=== PATIENT | female | born 1985 | race Caucasian/White ===

== ENCOUNTER → 2016-07-09 | Outpatient (CLI) | payer OTHER ==
--- NOTE | 2016-07-09 12:19 | XR ---
EXAMINATION TYPE: XR ankle complete LT DATE OF EXAM: 07/09/2016 12:13 PM COMPARISON: NONE HISTORY: Lateral ankle pain FINDINGS: Three views of the ankle demonstrate the ankle mortise to be intact and symmetric. The joint spaces are preserved. The osseous structures are intact. IMPRESSION: 1. No definite acute fracture or dislocation, if symptoms persist follow-up study in 7 to 10 days wou ld be suggested.
--- NOTE | 2016-07-09 12:20 | XR ---
EXAMINATION TYPE: XR foot complete LT DATE OF EXAM: 07/09/2016 12:13 PM COMPARISON: NONE HISTORY: Pain TECHNIQUE: Three views are submitted. FINDINGS: The osseous structures are intact and the joint spaces are preserved. There is no acute fracture or dislocation. Soft tissue edema around the first and fifth MTP joints. Mild arthropathy first MTP join t. Hammertoe deformities noted. IMPRESSION: 1. No acute fracture or dislocation. If symptoms persist, follow-up exam in 7 to 10 days could be ob tained. Soft tissue edema adjacent to the fifth and first MTP likely chronic correlate clinically.
== END | disposition home or self-care (01) ==
LOC: RADXRMAIN 11:49 → MERGE 11:49
PROVIDERS: ATTEND Internal Medicine
DX: M25.572 Pain in left ankle and joints of left foot (principal)

== ENCOUNTER → 2018-05-13 | Outpatient (CLI) | payer OTHER ==
--- NOTE | 2018-05-13 16:59 | CT ---
EXAMINATION TYPE: CT abdomen pelvis w con DATE OF EXAM: 05/13/2018 COMPARISON: None INDICATION: Left sided abdominal pain. DLP: 481.3 mGycm, Automated exposure control for dose reduction was used. CONTRAST: 100 mL of Isovue M300. Study performed with Oral Contrast TECHNIQUE: Axial images were obtained from above the diaphragm to the pubic rami in the axial plane a t 5 mm thick sections. Reconstructed images are reviewed on the computer in the coronal plane. FINDINGS: Limited CT sections are obtained the lung bases. The lung bases are clear. CT ABDOMEN: Liver: There is a suspected 1.3 cm hemangioma within the posterior lateral right mid liver. This area appears to be normal density and postcontrast delayed images. Spleen: Normal Pancreas: Normal Adrenal glands: The adrenal glands are normal. Gallbladder: Normal Kidneys: No masses are evident. No hydronephrosis is present. No cysts are present. Delayed images were obtained through the kidneys, which remain unremarkable. Aorta: Normal Inferior vena cava: Normal. CT PELVIS: Loops of bowel within the abdomen and pelvis are normal. There are loops of bowel which are incom pletely distended or lack oral contrast limiting their evaluation. Appendix: Not visualized. No suspicious tubular structures or inflammatory changes are. Urinary bladder: Distended Genitourinary structures: Uterus appears normal. Adnexal regions appear normal limits. Small amount o f fluid is within the dependent pelvis. This could be physiologic. Osseous structures: No suspicious lytic or sclerotic lesions. IMPRESSIONS: 1. Probable hemangioma within the liver. This could be confirmed with ultrasound. 2. No suspicious etiology to account for left abdominal pain.
== END | disposition home or self-care (01) ==
LOC: RADCTMAIN 12:26
PROVIDERS: ATTEND Internal Medicine
DX: R10.84 Generalized abdominal pain (principal)
CPT/HCPCS: 74177; Q9967

== ENCOUNTER → 2019-09-12 | Outpatient (CLI) | payer OTHER ==
--- NOTE | 2019-09-12 11:36 | US ---
EXAMINATION TYPE: US abdomen complete DATE OF EXAM: 09/12/2019 COMPARISON: NONE CLINICAL HISTORY: R10.84 ABD PAIN. Pain EXAM MEASUREMENTS: Liver Length: 16.4 cm Gallbladder Wall: .3 cm CBD: .6 cm Spleen: 10.7 cm Right Kidney: 10.1 x 4.1 x 3.7 cm Left Kidney: 10.1 x 4.9 x 3.6 cm Pancreas: wnl Liver: wnl Gallbladder: wnl Evidence for sonographic Tran's sign: No CBD: wnl Spleen: wnl Right Kidney: wnl Left Kidney: wnl Upper IVC: wnl Abd Aorta: wnl The liver is homogenous. The intrahepatic portion of the IVC and proximal abdominal aorta are within normal limits. There is no evidence of cholelithiasis. Common bile duct is unremarkable. The visu alized portions of the pancreas are homogenous. The spleen is unremarkable. Kidneys are symmetric a nd free of hydronephrosis. No renal lesions are seen. IMPRESSION: No significant abnormality appreciated.
== END | disposition home or self-care (01) ==
LOC: RADUSWWP 09:56
PROVIDERS: ATTEND Internal Medicine
DX: R10.84 Generalized abdominal pain (principal)
CPT/HCPCS: 76700

== ENCOUNTER → 2019-10-23 | Outpatient (CLI) | payer OTHER ==
--- NOTE | 2019-10-24 09:38 | MR ---
EXAMINATION TYPE: MR liver wo/w con DATE OF EXAM: 10/23/2019 COMPARISON: NONE HISTORY: Liver lesion on 05/13/[address] Abdomen TECHNIQUE: Multiplanar, multisequence images of the abdomen, liver mass protocol were obtained before and after administration of 7 mL Gadavist IV contrast. FINDINGS: Lung bases: No pleural or pericardial effusion. Liver: Within segment 6 of the liver there is a 1.1 x 1.0 x 0.9 cm T1 hypointense, T2 hyperintense, w ell-circumscribed enhancing lesion with no evidence of washout. Peripheral wedge-shaped vascular tabatha rial shunting shunting is seen associated with this lesion on arterial phase. This lesion contains no macroscopic or microscopic fat. Biliary: Normal. Pancreas: Normal. Spleen: Normal. Adrenals: Normal. Kidneys: Normal. Bowel: No bowel obstruction. Lymph nodes: No lymphadenopathy. Peritoneum: No ascites. Osseous structures: No marrow-replacing lesions seen. A couple vertebral body hemangiomas are inciden tally noted. IMPRESSION: 1.1 cm lesion of the right liver most likely represents benign hemangioma. No additional follow-up is recommended.
== END | disposition home or self-care (01) ==
LOC: RADMRIMAIN 15:21
PROVIDERS: ATTEND Internal Medicine
DX: K76.9 Liver disease, unspecified (principal)
CPT/HCPCS: 74183; A9585

== ENCOUNTER 2019-11-17 11:31 | Day surgery (SDC) | payer OTHER ==
[2019-11-16 09:25] VITALS: BMI 25.0
[~2019-11-17 11:31] MED LIST: LACTATED RINGERS 1,000 ML IV SCH
[2019-11-17 12:05] VITALS: RESP 16; TEMP 96
[2019-11-17] MEDS ORDERED: LIDOCAINE 1% (10MG/ML) FOR IV START INTRADERMA ONE (12:08)
[2019-11-17] MEDS ORDERED: LIDOCAINE 1% INJ 10MG/ML (20 ML MDV) ONE (13:26)
[2019-11-17] MEDS ORDERED: PROPOFOL 10 MG/ML 20 ML VIAL IV ONE (13:26)
[2019-11-17] MEDS ORDERED: IV FLUID CONTINUATION 1,000 ML IV ONE (13:32)
--- NOTE | 2019-11-17 13:34 | P.PCN ---
Date of Procedure: 11/17/19 Procedure(s) Performed: BRIEF HISTORY: Patient is a 34-year-old, pleasant, white female scheduled for an upper endoscopy as a part of evaluation of epigastric and left upper quadrant abdominal pain for the last 2 months duration.. PROCEDURE PERFORMED: Esophagogastroduodenoscopy with biopsy. PREOPERATIVE DIAGNOSIS: Epigastric and left upper quadrant abdominal pain of 2 months duration. IV sedation per anesthesia. PROCEDURE: After informed consent was obtained, the patient was brought into the endoscopy unit. IV sedation was administered by Anesthesia under continuous monitoring. Initially the Olympus GIF-140 video endoscope was inserted into the mouth. Esophagus intubated without any difficulty. It was gradually advanced into the stomach and duodenum and carefully examined. The bulb and the second part of the duodenum appeared normal. The scope at this time was withdrawn to the stomach, adequately insufflated with air, and upon careful examination, mucosa of the antrum, body had multiple scattered erosions consistent with erosive gastritis and biopsies were done from this area. The, cardia and the fundus appeared normal. The scope was then withdrawn into the esophagus. The GE junction was located at 39 cm from the incisors. The esophagus appeared normal. There were no erosions or ulcerations seen, biopsies were done from the esophagus and the patient tolerated the procedure well. IMPRESSION: 1. Multiple scattered erosions in the distal body and proximal antrum of the stomach status post biopsies. 2. No evidence of esophagitis. RECOMMENDATIONS: The findings of this examination were discussed with the patient as well as a family. She was advised to follow with the biopsy results. Intermittent meantime she will be given a trial of Prilosec 20 mg daily for 6 weeks..
[2019-11-17 13:37] VITALS: PULSE 76
[2019-11-17 13:50] VITALS: BP 110/68
== END 2019-11-17 14:06 | disposition home or self-care (01) ==
LOC: ORWHC2ENDO 11:31
PROVIDERS: ATTEND Internal Medicine Gastroenterology
DX: K29.50 Unspecified chronic gastritis without bleeding (principal); K25.9 Gastric ulcer, unspecified as acute or chronic, without hemorrhage or perforation; I49.9 Cardiac arrhythmia, unspecified; I10 Essential (primary) hypertension; R00.0 Tachycardia, unspecified; Z79.890 Hormone replacement therapy; Z79.899 Other long term (current) drug therapy
CPT/HCPCS: 81025; 88305; 43239; J2001; J2704

== ENCOUNTER → 2020-09-16 | Outpatient (CLI) | payer OTHER ==
--- NOTE | 2020-09-17 07:51 | XR ---
EXAMINATION TYPE: XR foot complete LT DATE OF EXAM: 09/16/2020 CLINICAL HISTORY: 07/09/2016 TECHNIQUE: Frontal, lateral and oblique images of the left foot are obtained. COMPARISON: None. FINDINGS: There is no acute fracture/dislocation evident. Screw fixation noted of the midportion of the fifth metatarsal. Bunionectomy change lateral margin of the fifth metatarsal head. The joint spac es appear within normal limits. The overlying soft tissue appears unremarkable. IMPRESSION: There is no acute fracture or dislocation. ICD 10 NO FRACTURE, INITIAL EVALUATION
== END | disposition home or self-care (01) ==
LOC: RADXRMAIN 16:23
PROVIDERS: ATTEND Internal Medicine
DX: M79.672 Pain in left foot (principal)

== ENCOUNTER → 2021-01-23 | Outpatient (CLI) | payer OTHER ==
--- NOTE | 2021-01-27 09:50 | MM ---
Reason for exam: screening (asymptomatic). Baseline mammogram. History: Taking hormonal contraceptives for 4 years. Physical Findings: Nurse did not find any significant physical abnormalities on exam. MG Screening Mammo w CAD Bilateral CC and MLO view(s) were taken. The breast tissue is heterogeneously dense. This may lower the sensitivity of mammography. No significant findings. ASSESSMENT: Benign, BI-RAD 2 RECOMMENDATION: Routine screening mammogram of both breasts at age 38.
== END | disposition home or self-care (01) ==
LOC: RADMAMWWP 14:14
PROVIDERS: ATTEND Internal Medicine
DX: Z12.31 Encounter for screening mammogram for malignant neoplasm of breast (principal)
CPT/HCPCS: 77067

== ENCOUNTER 2021-02-05 17:04 | Emergency (ER) | payer OTHER ==
[2021-02-05 18:27] VITALS: TEMP 97.5
[2021-02-05 19:06] LABS: Basophils % (A) 1 %; Eosinophils # (A) 0.1 k/uL (0-0.7); Eosinophils % (A) 2 %; HGB 14.5 gm/dL (11.4-16.0); Lymphocytes # (A) 1.3 k/uL (1.0-4.8); Lymphocytes % (A) 25 %; MCH 31.8 pg (25.0-35.0); MCHC 34.5 g/dL (31.0-37.0); MCV 92.2 fL (80.0-100.0); Mean Platelet Volume 9.4; Monocytes # (A) 0.3 k/uL (0-1.0); Monocytes % (A) 6 %; Neutrophils # (A) 3.3 k/uL (1.3-7.7); Neutrophils % (A) 63 %; Platelet Count 190 k/uL (150-450); RBC 4.55 m/uL (3.80-5.40); RDW 12.6 % (11.5-15.5); WBC 5.3 k/uL (3.8-10.6)
[2021-02-05 19:24] LABS: ALT 21 U/L (4-34); AST 25 U/L (14-36); African American GFR (CKD) >90 (>60 ml/min/1.73 sqM); Albumin 4.5 g/dL (3.5-5.0); Alkaline Phosphatase 48 U/L (38-126); Anion Gap 8 mmol/L; Blood Urea Nitrogen 12 mg/dL (7-17); Calcium 9.6 mg/dL (8.4-10.2); Carbon Dioxide 27 mmol/L (22-30); Chloride 104 mmol/L (98-107); Glucose 97 mg/dL (74-99); Magnesium 2.1 mg/dL (1.6-2.3); Non-African American GFR(CKD) >90 (>60 ml/min/1.73 sqM); Potassium 3.9 mmol/L (3.5-5.1); Sodium 139 mmol/L (137-145); Total Bilirubin 0.2 mg/dL (0.2-1.3); Total Protein 7.7 g/dL (6.3-8.2)
[2021-02-05 19:27] LABS: Partial Thromboplastin Time 24.9 sec (22.0-30.0); Prothrombin Time 10.5 sec (9.0-12.0)
[2021-02-05] MEDS ORDERED: IBUPROFEN 600 MG TAB PO STA (20:33)
--- NOTE | 2021-02-05 20:52 | ED ---
Chest Pain HPI - General Chief Complaint: Chest Pain Stated Complaint: chest pain, SOB Time Seen by Provider: 02/05/21 18:30 Source: patient Mode of arrival: ambulatory Limitations: no limitations - History of Present Illness Initial Comments: 35-year-old female with past history of tachycardia presents to the emergency department with chest pain. States that she was at work when she had sudden onset of chest pain at 2:30 PM. Reports to mild associated shortness of breath. No nausea or vomiting. No previous history of heart disease. Also reports to right-sided earache. No fevers, chills, cough, sick contacts. No history of heart disease. No concern for . No other alleviating, precipitating or modifying factors - Related Data Home Medications Medication Instructions Recorded Confirmed Levothyroxine Sodium [Synthroid] 112 mcg PO DAILY 11/16/19 02/05/21 Amee 0.25-0.035 1 tab PO DAILY 02/05/21 02/05/21 Allergies Allergy/AdvReac Type Severity Reaction Status Date / Time No Known Allergies Allergy Verified 02/05/21 20:34 Review of Systems ROS Statement: Those systems with pertinent positive or pertinent negative responses have been documented in the HPI. ROS Other: All systems not noted in ROS Statement are negative. EKG Findings - EKG Comments: EKG Findings:: EKG demonstrates normal sinus rhythm with a ventricular rate of 75. WI interval 160. QRS 82. QTC of 419. No acute ST segment elevations or depressions concerning for ischemic changes. Past Medical History Past Medical History: Thyroid Disorder Additional Past Medical History / Comment(s): hx. tachycardia, abd. pain on left side since beginning of August, occasional bloating, pain worse after eating History of Any Multi-Drug Resistant Organisms: None Reported Past Surgical History: Orthopedic Surgery Additional Past Surgical History / Comment(s): adonis bunionectomy, wisdom teeth removed Past Anesthesia/Blood Transfusion Reactions: No Reported Reaction Past Psychological History: No Psychological Hx Reported Smoking Status: Former smoker Past Alcohol Use History: Occasional Past Drug Use History: None Reported General Exam Limitations: no limitations General appearance: alert, in no apparent distress Head exam: Present: atraumatic, normocephalic, normal inspection Eye exam: Present: normal appearance, PERRL, EOMI. Absent: scleral icterus, conjunctival injection, periorbital swelling ENT exam: Present: normal exam, mucous membranes moist Neck exam: Present: normal inspection. Absent: tenderness, meningismus, lymphadenopathy Respiratory exam: Present: normal lung sounds bilaterally. Absent: respiratory distress, wheezes, rales, rhonchi, stridor Cardiovascular Exam: Present: regular rate, normal rhythm, normal heart sounds. Absent: systolic murmur, diastolic murmur, rubs, gallop, clicks GI/Abdominal exam: Present: soft, normal bowel sounds. Absent: distended, tenderness, guarding, rebound, rigid Extremities exam: Present: normal inspection, full ROM, normal capillary refill. Absent: tenderness, pedal edema, joint swelling, calf tenderness Back exam: Present: normal inspection Neurological exam: Present: alert, oriented X3, CN II-XII intact Psychiatric exam: Present: normal affect, normal mood Skin exam: Present: warm, dry, intact, normal color. Absent: rash Course Vital Signs 02/05/21 02/05/21 18:25 21:43 Temperature 97.5 F L Pulse Rate 93 77 Respiratory 20 17 Rate Blood Pressure 125/80 122/72 O2 Sat by Pulse 98 98 Oximetry Chest Pain MDM - MDM Upon arrival the patient is placed into room 16. EKG is performed. Laboratory studies are obtained and chest x-rays performed. D-dimer negative, troponin negative. Chest x-ray clear of any acute process. Patient is reevaluated after dose of Motrin reports improvement in her symptoms. Did discuss diagnosis, d ifferential and treatment options. Patient will be discharged home at this time and is instructed to follow-up with her primary care doctor in 2-4 days. Patient needs Holter monitoring and echo. Return to the emergency room for any new or worsening symptoms. Patient was discharged home in stable condition Disposition Clinical Impression: Chest pain Disposition: HOME SELF-CARE Condition: Stable Instructions (If sedation given, give patient instructions): Chest Pain (ED) Additional Instructions: Recommend that you follow-up with your primary care doctor in 2-4 days for an echo and holter monitoring. Take Motrin and Tylenol alternating for pain control. Return to the emergency department for any new or worsening symptoms. Is patient prescribed a controlled substance at d/c from ED?: No Referrals: Rose Galarza MD [Primary Care Provider] - 1-2 days Time of Disposition: 21:31
--- NOTE | 2021-02-05 21:01 | XR ---
EXAMINATION TYPE: XR chest 2V DATE OF EXAM: 02/05/2021 COMPARISON: NONE HISTORY: Cough TECHNIQUE: 2 views FINDINGS: Heart and mediastinum are normal. Lungs are clear. Diaphragm is normal. Bony thorax appears normal. IMPRESSION: Normal chest.
[2021-02-05 21:44] VITALS: BP 122/72; PULSE 77; RESP 17
== END 2021-02-05 21:44 | disposition home or self-care (01) ==
LOC: EC 17:04
DX: R07.9 Chest pain, unspecified (principal); E07.9 Disorder of thyroid, unspecified; Z87.891 Personal history of nicotine dependence
CPT/HCPCS: 36415; 71046; 80053; 83735; 84484; 85025; 85379; 85610; 85730; 93005; 99285

== ENCOUNTER → 2021-02-13 | Outpatient (CLI) | payer OTHER ==
--- NOTE | 2021-03-19 18:06 | EM ---
EVENT MONITOR REFERRING DOCTOR: Dr. Galarza. INDICATION: Cardiac arrhythmia. The patient was monitored for 30 day. The baseline is sinus rhythm. The patient did have multiple episodes of sinus tachycardia. No profound bradycardia noted. The patient did have multiple episodes of PACs and PVCs. No significant sinus pause or sinus arrest seen. No significant bradyarrhythmia noted. CONCLUSION: 1. This is a 30 day event monitor. 2. Sinus rhythm as a baseline mechanism. 3. The patient did have multiple episodes of sinus tachycardia. 4. No significant/profound bradycardia noted. 5. No sustained ventricular or supraventricular arrhythmia noted. MMODL / IJN: [id number] /
== END | disposition home or self-care (01) ==
LOC: RADECHMAIN 12:28
PROVIDERS: ATTEND Internal Medicine
DX: R00.0 Tachycardia, unspecified (principal); R07.89 Other chest pain
CPT/HCPCS: 93270

== ENCOUNTER → 2023-04-13 | Outpatient (CLI) | payer OTHER ==
--- NOTE | 2023-04-13 09:42 | CT ---
EXAMINATION TYPE: CT wrist LT wo con DATE OF EXAM: 04/13/2023 COMPARISON: No radiographic correlation available HISTORY: 37-year-old female Lifting injury, Pain in Lt wrist shooting up thumb TECHNIQUE: Contiguous axial scanning of the left wrist without IV contrast. Coronal and sagittal cheli nstructions performed. 3-D reconstructions generated on a dedicated independent workstation. CT DLP: 252 mGycm Automated exposure control for dose reduction was used. FINDINGS: The radiocarpal and distal radial ulnar joint as well as the metacarpal compartment appear intact. No acute fracture, subluxation, dislocation is seen. No significant joint effusion or tenosynovial fl uid IMPRESSION: NO ACUTE OSSEOUS ABNORMALITY SEEN.
== END | disposition home or self-care (01) ==
LOC: RADCTMAIN 08:10
PROVIDERS: ATTEND Pediatrics
DX: M25.532 Pain in left wrist (principal)

== ENCOUNTER → 2023-09-29 | Outpatient (CLI) | payer OTHER ==
--- NOTE | 2023-10-02 17:52 | MM ---
Reason for Exam: Screening (asymptomatic). Last mammogram was performed 2 year(s) and 9 month(s) ago. Patient History: Menarche at age 11. First Full-Term at age 28. Late child-bearing (after 28). Currently using Hormonal Contraceptives, for 4 years. Last menstrual period: 09/01/2023 Risk Values: Jacqueline 5 year model risk: 0.8%. NCI Lifetime model risk: 13.6%. Prior Study Comparison: 01/23/2021 Bilateral Screening Mammogram, [facility]. Tissue Density: The breasts are heterogeneously dense, which may obscure small masses. Findings: Analyzed By CAD. Areas of bilateral asymmetric density remain unchanged. There is no suspicious group of microcalcifications or new suspicious mass in either breast. Overall Assessment: Benign, BI-RAD 2 Management: Screening Mammogram of both breasts in 1 year. . Patient should continue monthly self-breast exams. A clinical breast exam by your physician is recommended on an annual basis. This exam should not preclude additional follow-up of suspicious palpable abnormalities. Note on Jacqueline scores and lifetime risk: 1. A Jacqueline score greater than 3% is considered moderate risk. If this is the case, consider specialist referral to assess eligibility for a risk reducing agent. 2. If overall lifetime risk for the development of breast cancer is 20% or higher, the patient may qualify for future screening with alternating mammogram and breast MRI. Electronically signed and approved by: Tarun Cheatham M.D. Radiologist
== END | disposition home or self-care (01) ==
LOC: RADMAMWWP 08:06
PROVIDERS: ATTEND Pediatrics
DX: Z12.31 Encounter for screening mammogram for malignant neoplasm of breast (principal)
CPT/HCPCS: 77067

== ENCOUNTER 2024-02-20 18:30 | Emergency (ER) | payer OTHER ==
[2024-02-20 18:40] VITALS: RESP 18; TEMP 98.2
--- NOTE | 2024-02-20 19:00 | ED ---
Abdominal Pain HPI - General Chief Complaint: Abdominal Pain Stated Complaint: rt sided flank pain Time Seen by Provider: 02/20/24 18:56 Source: patient, family, RN notes reviewed Mode of arrival: ambulatory Limitations: no limitations - History of Present Illness Initial Comments: 38-year-old female presented to the ER with a chief complaint of abdominal pain. Patient reports on 02-11-2024, she experienced a sharp right sided abdominal pain that subsided a day or two later. She states on this 02-18-2024, pain returned and has been persistent since. She described th pain as sharp in nature with no radiation pain starts at lower ribs and extends to right hip. She admits to mild nausea but denies vomiting, diarrhea or constipation. She states pain is worse with food and liquid consumption. She has tried taking [id number] ibuprofen which mildly dulled the pain, last dose was last night. Denies history of bowel surgeries. She denies any urinary complaints, vaginal bleeding or discharge, fevers, chills, chest pain, shortness of breath or peripheral edema. Patient reports she was seen at urgent care today and diagnosed with an ear infection and prescribed antibiotics. She has not started taking these. They told her to come to ER if pain persisted. - Related Data Home Medications Medication Instructions Recorded Confirmed Levothyroxine Sodium [Synthroid] 112 mcg PO DAILY 11/16/19 02/05/21 Amee 0.25-0.035 1 tab PO DAILY 02/05/21 02/05/21 Allergies Allergy/AdvReac Type Severity Reaction Status Date / Time No Known Allergies Allergy Verified 02/20/24 18:35 Review of Systems ROS Statement: Those systems with pertinent positive or pertinent negative responses have been documented in the HPI. ROS Other: All systems not noted in ROS Statement are negative. Past Medical History Past Medical History: Thyroid Disorder Additional Past Medical History / Comment(s): hx. tachycardia, abd. pain on left side since beginning of August, occasional bloating, pain worse after eating History of Any Multi-Drug Resistant Organisms: None Reported Past Surgical History: Orthopedic Surgery Additional Past Surgical History / Comment(s): adonis bunionectomy, wisdom teeth removed Past Anesthesia/Blood Transfusion Reactions: No Reported Reaction Past Psychological History: No Psychological Hx Reported Smoking Status: Former smoker Past Alcohol Use History: Occasional Past Drug Use History: None Reported General Exam Limitations: no limitations General appearance: alert, in no apparent distress Respiratory exam: Present: normal lung sounds bilaterally. Absent: respiratory distress, wheezes, rales, rhonchi, stridor Cardiovascular Exam: Present: regular rate, normal rhythm, normal heart sounds. Absent: systolic murmur, diastolic murmur, rubs, gallop, clicks GI/Abdominal exam: Present: soft, tenderness (RUQ/RLQ. Right lower quadrant predominant. Positive Rovsing sign), normal bowel sounds Neurological exam: Present: alert, oriented X3, CN II-XII intact Skin exam: Present: warm, dry, intact, normal color. Absent: rash Course Vital Signs 02/20/24 02/20/24 18:36 21:48 Temperature 98.2 F Pulse Rate 78 68 Respiratory 18 18 Rate Blood Pressure 125/85 120/84 O2 Sat by Pulse 100 99 Oximetry Medical Decision Making - Medical Decision Making Was pt. sent in by a medical professional or institution (, PA, SALES OFFICE MANAGER, urgent care, hospital, or [facility]...) When possible be specific @ -No Did you speak to anyone other than the patient for history (EMS, parent, family, police, friend...)? What history was obtained from this source @ -No Did you review nursing and triage notes (agree or disagree)? Why? @ -I reviewed and agree with nursing and triage notes Were old charts reviewed (outside hosp., previous admission, EMS record, old EKG, old radiological studies, urgent care reports/EKG's, [facility] records)? Report findings @ -No old charts were reviewed Differential Diagnosis (chest pain, altered mental status, abdominal pain women, abdominal pain men, vaginal bleeding, weakness, fever, dyspnea, syncope, headache, dizziness, GI bleed, back pain, seizure, CVA, palpatations, mental health, musculoskeletal)? @ -Differential Abdominal Pain Women: Appendicitis, Cholecystitis, diverticulosis, ischemic bowel, pancreatitis, hepatitis, UTI, gastroenteritis, AAA, incarcerated hernia, bowel obstruction, constipation, inflammatory bowel, hepatitis, peptic ulcer disease, splenic infarction, perforated viscus, vulvitis, ovarian torsion, PID, kidney stone, placenta abruption, this is not meant to be an all-inclusive list EKG interpreted by me (3pts min.). @ -None done X-rays interpreted by me (1pt min.). @ -None done CT interpreted by me (1pt min.). @ -CT abdomen pelvis negative for acute intra-abdominal process. Exam is limited as appendix is unable to be visualized. U/S interpreted by me (1pt. min.). @ -None done What testing was considered but not performed or refused? (CT, X-rays, U/S, labs)? Why? @ -None What meds were considered but not given or refused? Why? @ -None Did you discuss the management of the patient with other professionals (professionals i.e. DrTim, PA, SALES OFFICE MANAGER, lab, RT, psych nurse, older adult social work specialist, rental sales representative, teacher, chief client officer, patient case manager)? Give summary @ -No Was smoking cessation discussed for >3mins.? @ -No Was critical care preformed (if so, how long)? @ -No Were there social determinants of health that impacted care today? How? (H omelessness, low income, unemployed, alcoholism, drug addiction, transportation, low edu. Level, literacy, decrease access to med. care, shelter, rehab)? @ -No Was there de-escalation of care discussed even if they declined (Discuss DNR or withdrawal of care, Hospice)? DNR status @ -No What co-morbidities impacted this encounter? (DM, HTN, Smoking, COPD, CAD, Cancer, CVA, ARF, Chemo, Hep., AIDS, mental health diagnosis, sleep apnea, morbid obesity)? @ -None Was patient admitted / discharged? Hospital course, mention meds given and route, prescriptions, significant lab abnormalities, going to OR and other pertinent info. @ -Discharge. 38-year-old female presenting to the ER with a chief complaint of abdominal pain. History and physical exam completed. Vitals within normal limits. Patient in no signs of acute distress. Right lower quadrant abdominal tenderness to palpation with no rebound or guarding. Normal bowel sounds. Laboratory studies and urinalysis unremarkable. hCG negative. CT abdomen pelvis performed and negative for acute intraabdominal process. Exam is limited as appendix is unable to be visualized. Patient given IV fluids, Toradol, Zofran and Dilaudid for pain control in the ER. Results discussed with patient all questions answered. Patient stable for discharge upon reevaluation. Strict return parameters discussed. Patient discharged in stable condition with follow-up to PCP. Patient verbally expressed understanding and agreement with care plan. Case discussed with ED attending, Dr. Edmonds. Undiagnosed new problem with uncertain prognosis? @ -No Drug Therapy requiring intensive monitoring for toxicity (Heparin, Nitro, In sulin, Cardizem)? @ -No Were any procedures done? @ -No Diagnosis/symptom? @ -Abdominal pain Acute, or Chronic, or Acute on Chronic? @ -Acute Uncomplicated (without systemic symptoms) or Complicated (systemic symptoms)? @ -Uncomplicated Side effects of treatment? @ -No Exacerbation, Progression, or Severe Exacerbation? @ -No Poses a threat to life or bodily function? How? (Chest pain, USA, [place], pneumonia, PE, COPD, DKA, ARF, appy, cholecystitis, CVA, Diverticulitis, Homicidal, Suicidal, threat to staff... and all critical care pts) @ -No - Lab Data Result diagrams: 02/20/24 19:24 02/20/24 19:24 Lab Results 02/20/24 02/20/24 02/20/24 Range/Units 19:24 19:24 19:24 WBC 6.0 (3.8-10.6) k/uL RBC 4.81 (3.80-5.40) m/uL Hgb 14.9 (11.4-16.0) gm/dL Hct 44.5 (34.0-46.0) % MCV 92.5 (80.0-100.0) fL MCH 31.1 (25.0-35.0) pg MCHC 33.6 (31.0-37.0) g/dL RDW 12.5 (11.5-15.5) % Plt Count 186 (150-450) k/uL MPV 9.0 Neutrophils % 60 % Lymphocytes % 28 % Monocytes % 6 % Eosinophils % 3 % Basophils % 1 % Neutrophils # 3.6 (1.3-7.7) k/uL Lymphocytes # 1.7 (1.0-4.8) k/uL Monocytes # 0.4 (0-1.0) k/uL Eosinophils # 0.2 (0-0.7) k/uL Basophils # 0.0 (0-0.2) k/uL Sodium (137-145) mmol/L Potassium (3.5-5.1) mmol/L Chloride (98-107) mmol/L Carbon Dioxide (22-30) mmol/L Anion Gap mmol/L BUN (7-17) mg/dL Creatinine (0.52-1.04) mg/dL Est GFR (CKD-EPI)AfAm (>60 ml/min/1.73 sqM) Est GFR (CKD-EPI)NonAf (>60 ml/min/1.73 sqM) Glucose (74-99) mg/dL Plasma Lactic Acid Jacques (0.7-2.0) mmol/L Calcium (8.4-10.2) mg/dL Total Bilirubin (0.2-1.3) mg/dL AST (14-36) U/L ALT (4-34) U/L Alkaline Phosphatase (38-126) U/L Total Protein (6.3-8.2) g/dL Albumin (3.5-5.0) g/dL Amylase (30-110) U/L Lipase (23-300) U/L Urine Color Colorless Urine Appearance Clear (Clear) Urine pH 6.5 (5.0-8.0) Ur Specific [place] 1.006 (1.001-1.035) Urine Protein Negative (Negative) Urine Glucose (UA) Negative (Negative) Urine Ketones Negative (Negative) Urine Blood Negative (Negative) Urine Nitrite Negative (Negative) Urine Bilirubin Negative (Negative) Urine Urobilinogen <2.0 (<2.0) mg/dL Ur Leukocyte Esterase Negative (Negative) Urine HCG, Qual Not Detected (Not Detectd) 02/20/24 02/20/24 Range/Units 19:24 19:24 WBC (3.8-10.6) k/uL RBC (3.80-5.40) m/uL Hgb (11.4-16.0) gm/dL Hct (34.0-46.0) % MCV (80.0-100.0) fL MCH (25.0-35.0) pg MCHC (31.0-37.0) g/dL RDW (11.5-15.5) % Plt Count (150-450) k/uL MPV Neutrophils % % Lymphocytes % % Monocytes % % Eosinophils % % Basophils % % Neutrophils # (1.3-7.7) k/uL Lymphocytes # (1.0-4.8) k/uL Monocytes # (0-1.0) k/uL Eosinophils # (0-0.7) k/uL Basophils # (0-0.2) k/uL Sodium 139 (137-145) mmol/L Potassium 4.0 (3.5-5.1) mmol/L Chloride 109 H (98-107) mmol/L Carbon Dioxide 25 (22-30) mmol/L Anion Gap 5 mmol/L BUN 9 (7-17) mg/dL Creatinine 0.77 (0.52-1.04) mg/dL Est GFR (CKD-EPI)AfAm >90 (>60 ml/min/1.73 sqM) Est GFR (CKD-EPI)NonAf >90 (>60 ml/min/1.73 sqM) Glucose 90 (74-99) mg/dL Plasma Lactic Acid Jacques 0.9 (0.7-2.0) mmol/L Calcium 9.2 (8.4-10.2) mg/dL Total Bilirubin 0.4 (0.2-1.3) mg/dL AST 19 (14-36) U/L ALT 15 (4-34) U/L Alkaline Phosphatase 52 (38-126) U/L Total Protein 7.7 (6.3-8.2) g/dL Albumin 4.6 (3.5-5.0) g/dL Amylase 54 (30-110) U/L Lipase 106 (23-300) U/L Urine Color Urine Appearance (Clear) Urine pH (5.0-8.0) Ur Specific [place] (1.001-1.035) Urine Protein (Negative) Urine Glucose (UA) (Negative) Urine Ketones (Negative) Urine Blood (Negative) Urine Nitrite (Negative) Urine Bilirubin (Negative) Urine Urobilinogen (<2.0) mg/dL Ur Leukocyte Esterase (Negative) Urine HCG, Qual (Not Detectd) - Radiology Data Radiology results: report reviewed, image reviewed Disposition Clinical Impression: Abdominal pain Disposition: HOME SELF-CARE Condition: Stable Instructions (If sedation given, give patient instructions): Abdominal Pain (ED) Additional Instructions: Follow-up closely with PCP. Return to the ER for any new or worsening concerns. Is patient prescribed a controlled substance at d/c from ED?: No Referrals: Red Frey MD [Primary Care Provider] - 1-2 days Time of Disposition: 20:42
[2024-02-20 19:43] LABS: Basophils % (A) 1 %; Eosinophils # (A) 0.2 k/uL (0-0.7); Eosinophils % (A) 3 %; HCT 44.5 % (34.0-46.0); HGB 14.9 gm/dL (11.4-16.0); Lymphocytes # (A) 1.7 k/uL (1.0-4.8); Lymphocytes % (A) 28 %; MCH 31.1 pg (25.0-35.0); MCHC 33.6 g/dL (31.0-37.0); MCV 92.5 fL (80.0-100.0); Monocytes # (A) 0.4 k/uL (0-1.0); Monocytes % (A) 6 %; Neutrophils # (A) 3.6 k/uL (1.3-7.7); Neutrophils % (A) 60 %; Platelet Count 186 k/uL (150-450); RBC 4.81 m/uL (3.80-5.40); RDW 12.5 % (11.5-15.5)
[2024-02-20 19:51] LABS: Appearance,Urine Clear (Clear); Bilirubin,Urine Negative (Negative); Blood,Urine Negative (Negative); Color,Urine Colorless; Glucose,Urine (UA) Negative (Negative); Ketones,Urine Negative (Negative); Leukocyte Esterase,Urine Negative (Negative); Nitrite,Urine Negative (Negative); PH, Urine 6.5 (5.0-8.0); Protein,Urine Negative (Negative); Specific Gravity,Urine 1.006 (1.001-1.035); Urobilinogen,Urine <2.0 mg/dL (<2.0)
[2024-02-20 19:57] LABS: ALT 15 U/L (4-34); AST 19 U/L (14-36); African American GFR (CKD) >90 (>60 ml/min/1.73 sqM); Albumin 4.6 g/dL (3.5-5.0); Alkaline Phosphatase 52 U/L (38-126); Amylase 54 U/L (30-110); Anion Gap 5 mmol/L; Blood Urea Nitrogen 9 mg/dL (7-17); Calcium 9.2 mg/dL (8.4-10.2); Carbon Dioxide 25 mmol/L (22-30); Chloride 109 mmol/L (98-107); Glucose 90 mg/dL (74-99); Lipase 106 U/L (23-300); Non-African American GFR(CKD) >90 (>60 ml/min/1.73 sqM); Sodium 139 mmol/L (137-145); Total Bilirubin 0.4 mg/dL (0.2-1.3); Total Protein 7.7 g/dL (6.3-8.2)
[2024-02-20] MEDS: KETOROLAC 15 MG/ML 1 ML VIAL IVP STA (20:03)
[2024-02-20] MEDS: ONDANSETRON 4 MG/2 ML VIAL IVP STA (20:03)
[2024-02-20] MEDS: SODIUM CHLORIDE 0.9% 1,000 ML IV STA (20:03)
--- NOTE | 2024-02-20 20:14 | CT ---
EXAMINATION TYPE: CT abdomen pelvis w con DATE OF EXAM: 02/20/2024 7:54 PM COMPARISON 10/23/2019 CLINICAL INDICATION: Female, 38 years old with history of RLQ abd pain; TECHNIQUE: Axial CT abdomen pelvis w con;Sagittal and coronal reformats were created on a separate w orkstation. Contrast used: mL of , (none if empty) Oral contrast used: (none if empty) CT DLP: mGycm, Automated exposure control for dose reduction was used. FINDINGS: LOWER CHEST: Unremarkable ABDOMEN LIVER: Unremarkable arterial enhancing lesion measuring 12 mm in the right hepatic lobe. GALLBLADDER AND BILE DUCTS: Unremarkable. PANCREAS: Unremarkable. SPLEEN: Unremarkable. ADRENAL GLANDS: Unremarkable. KIDNEYS AND URETERS: No evidence of hydronephrosis or renal calculus. The ureters are unremarkable. PELVIS BLADDER: No evidence for wall thickening or mass given limitations of exam. REPRODUCTIVE: Uterus is retroverted. ABDOMEN & PELVIS STOMACH AND BOWEL: No evidence of bowel obstruction. The cecum is in the pelvis and appendix is not d efinitively visualized. PERITONEUM/RETROPERITONEUM: No evidence of pneumoperitoneum or free fluid. VASCULATURE: No evidence of aortic aneurysm. MUSCULOSKELETAL: No acute osseous abnormalities LYMPH NODES: No gross evidence for lymphadenopathy. SOFT TISSUE/ABDOMINAL WALL: Fat-containing umbilical hernia. IMPRESSION: 1. No definitive acute right lower quadrant process. The appendix is not visualized. The cecum is lo cated in the pelvis. No obstructive uropathy or renal calculus identified. 2. Retroverted uterus. 3. Right hepatic lobe arterial phase enhancing lesion most compatible with benign etiology on prior MRI 10/23/2019. [facility], , 02/20/2024 8:12 PM
[2024-02-20] MEDS: HYDROmorphone 0.5 MG/0.5 ML SYRINGE IVP STA (21:20)
[2024-02-20 21:49] VITALS: BP 120/84; PULSE 68
== END 2024-02-20 21:49 | disposition home or self-care (01) ==
LOC: EC 18:30
DX: N85.4 Malposition of uterus (principal); Z87.891 Personal history of nicotine dependence
CPT/HCPCS: 36415; 80053; 82150; 83605; 83690; 85025; 81003; 81025; 74177; 99284; 96374; 96375 ×2; 96361 ×2; J2405; J1885; J1171; Q9967

== ENCOUNTER 2024-02-22 08:45 | Observation (INO) | payer OTHER ==
--- NOTE | 2024-02-22 09:20 | ED ---
General Adult HPI - General Chief complaint: Abdominal Pain Stated complaint: ABD pain/back pain/vomitting Time Seen by Provider: 02/22/24 09:00 Source: patient, RN notes reviewed, old records reviewed Mode of arrival: ambulatory Limitations: no limitations - History of Present Illness Initial comments: 38-year-old female presenting for evaluation of right-sided abdominal pain and right flank pain. Pain has been present for the past 2 days. She was seen in the emergency department 2 days prior where she had workup including laboratory testing, urinalysis, CT abdomen pelvis. Workup did not find a specific diagnosis and the patient was discharged. Patient states her symptoms have persisted including nausea and vomiting worsening pain. - Related Data Home Medications Medication Instructions Recorded Confirmed Azithromycin [Zithromax Z Pack] See Taper PO DIRECTED 02/22/24 02/22/24 norgestimate-ethinyl estradioL 1 tab PO HS 02/22/24 02/22/24 [Sprintec 28 Day Tablet] Allergies Allergy/AdvReac Type Severity Reaction Status Date / Time No Known Allergies Allergy Verified 02/22/24 11:17 Review of Systems ROS Statement: Those systems with pertinent positive or pertinent negative responses have been documented in the HPI. ROS Other: All systems not noted in ROS Statement are negative. Past Medical History Past Medical History: Thyroid Disorder Additional Past Medical History / Comment(s): hx. tachycardia, abd. pain on left side since beginning of August, occasional bloating, pain worse after eating History of Any Multi-Drug Resistant Organisms: None Reported Past Surgical History: Orthopedic Surgery Additional Past Surgical History / Comment(s): adonis bunionectomy, wisdom teeth removed Past Anesthesia/Blood Transfusion Reactions: No Reported Reaction Past Psychological History: No Psychological Hx Reported Smoking Status: Former smoker Past Alcohol Use History: Occasional Past Drug Use History: None Reported General Exam Limitations: no limitations Course Vital Signs 02/22/24 02/22/24 08:55 10:33 Temperature 97.3 F L Pulse Rate 65 70 Respiratory 20 18 Rate Blood Pressure 126/83 123/81 O2 Sat by Pulse 96 100 Oximetry Medical Decision Making - Medical Decision Making Was pt. sent in by a medical professional or institution (, PA, ECONOMICS FACULTY MEMBER, urgent care, hospital, or group home...) When possible be specific @ -No Did you speak to anyone other than the patient for history (EMS, parent, family, police, friend...)? What history was obtained from this source @ -No Did you review nursing and triage notes (agree or disagree)? Why? @ -I reviewed and agree with nursing and triage notes Were old charts reviewed (outside hosp., previous admission, EMS record, old EKG, old radiological studies, urgent care reports/EKG's, group home records)? Report findings @ -No old charts were reviewed Differential Abdominal Pain Women: Appendicitis, Cholecystitis, diverticulosis, ischemic bowel, pancreatitis, hepatitis, UTI, gastroenteritis, AAA, incarcerated hernia, bowel obstruction, constipation, inflammatory bowel, hepatitis, peptic ulcer disease, splenic infarction, perforated viscus, vulvitis, ovarian torsion, PID, kidney stone, placenta abruption, this is not meant to be an all-inclusive list EKG interpreted by me (3pts min.). @ -As above X-rays interpreted by me (1pt min.). @ -None done CT interpreted by me (1pt min.). @CT scan of the abdomen with contrast is negative for acute findings however the appendix is not visualized. U/S interpreted by me (1pt. min.). @Ultrasound pelvis negative for torsion or acute ovarian pathology What testing was considered but not performed or refused? (CT, X-rays, U/S, labs)? Why? @ -None What meds were considered but not given or refused? Why? @ -None Did you discuss the management of the patient with other professionals (professionals i.e. , PA, ECONOMICS FACULTY MEMBER, lab, RT, psych nurse, addiction social worker, flat sorter processor, teacher, airconditioning drafting officer, case operator)? Give summary @ -No Was smoking cessation discussed for >3mins.? @ -No Was critical care preformed (if so, how long)? @ -No Were there social determinants of health that impacted care today? How? (Homelessness, low income, unemployed, alcoholism, drug addiction, transportation, low edu. Level, literacy, decrease access to med. care, group home, rehab)? @ -No Was there de-escalation of care discussed even if they declined (Discuss DNR or withdrawal of care, Hospice)? DNR status @ -No What co-morbidities impacted this encounter? (DM, HTN, Smoking, COPD, CAD, Cancer, CVA, ARF, Chemo, Hep., AIDS, mental health diagnosis, sleep apnea, morbid obesity)? @ -None Was patient admitted / discharged? Hospital course, mention meds given and route, prescriptions, significant lab abnormalities, going to OR and other pertinent info. @ -38-year-old female presenting for evaluation of persistent right lower quadrant abdominal pain. Patient was seen in the emergency department 2 days prior with normal lab testing, your normal urinalysis, and CT that did not show a cause of the patient's pain. She presents today with persistent pain she has focal tenderness in the right lower quadrant. Workup reveals a leukopenia without leukocytosis. Normal electrolytes, normal urinalysis. I did repeat the CAT scan because the previous CAT scan did not visualize the appendix and again the appendix is not visualized. Ultrasound of the pelvic organs are negative for acute pathology. Patient continues to be symptomatic given the focal tenderness I will place patient in observation to internal medicine with general surgery on consult. Undiagnosed new problem with uncertain prognosis? @ -No Drug Therapy requiring intensive monitoring for toxicity (Heparin, Nitro, Insulin, Cardizem)? @ -No Were any procedures done? @ -No Diagnosis/symptom? @ -Intractable right lower quadrant abdominal pain Acute, or Chronic, or Acute on Chronic? @Acute Uncomplicated (without systemic symptoms) or Complicated (systemic symptoms)? @ -Default Side effects of treatment? @ -No Exacerbation, Progression, or Severe Exacerbation? @ -No Poses a threat to life or bodily function? How? (Chest pain, USA, [place], pneumonia, PE, COPD, DKA, ARF, appy, cholecystitis, CVA, Diverticulitis, Homicidal, Suicidal, threat to staff... and all critical care pts) @ -Moderate risk - Lab Data Result diagrams: 02/22/24 09:38 02/22/24 09:38 Lab Results 02/22/24 02/22/24 02/22/24 Range/Units 09:38 09:38 09:38 WBC 3.7 L (3.8-10.6) k/uL RBC 4.68 (3.80-5.40) m/uL Hgb 14.3 (11.4-16.0) gm/dL Hct 42.4 (34.0-46.0) % MCV 90.7 (80.0-100.0) fL MCH 30.6 (25.0-35.0) pg MCHC 33.7 (31.0-37.0) g/dL RDW 12.8 (11.5-15.5) % Plt Count 159 (150-450) k/uL MPV 9.3 Neutrophils % 63 % Lymphocytes % 25 % Monocytes % 7 % Eosinophils % 2 % Basophils % 0 % Neutrophils # 2.3 (1.3-7.7) k/uL Lymphocytes # 0.9 L (1.0-4.8) k/uL Monocytes # 0.3 (0-1.0) k/uL Eosinophils # 0.1 (0-0.7) k/uL Basophils # 0.0 (0-0.2) k/uL PT 10.2 (10.0-12.5) sec INR 0.9 (<1.2) APTT 23.9 (22.0-30.0) sec Sodium 143 (137-145) mmol/L Potassium 4.2 (3.5-5.1) mmol/L Chloride 103 (98-107) mmol/L Carbon Dioxide 24 (22-30) mmol/L Anion Gap 16 mmol/L BUN 7 (7-17) mg/dL Creatinine 0.80 (0.52-1.04) mg/dL Est GFR (CKD-EPI)AfAm >90 (>60 ml/min/1.73 sqM) Est GFR (CKD-EPI)NonAf >90 (>60 ml/min/1.73 sqM) Glucose 93 (74-99) mg/dL Calcium 7.7 L (8.4-10.2) mg/dL Total Bilirubin 0.5 (0.2-1.3) mg/dL AST 17 (14-36) U/L ALT 13 (4-34) U/L Alkaline Phosphatase 43 (38-126) U/L Total Protein 7.0 (6.3-8.2) g/dL Albumin 4.5 (3.5-5.0) g/dL Lipase 69 (23-300) U/L Urine Color Urine Appearance (Clear) Urine pH (5.0-8.0) Ur Specific [place] (1.001-1.035) Urine Protein (Negative) Urine Glucose (UA) (Negative) Urine Ketones (Negative) Urine Blood (Negative) Urine Nitrite (Negative) Urine Bilirubin (Negative) Urine Urobilinogen (<2.0) mg/dL Ur Leukocyte Esterase (Negative) Urine HCG, Qual (Not Detectd) Influenza Type A (PCR) (Not Detectd) Influenza Type B (PCR) (Not Detectd) RSV (PCR) (Not Detectd) SARS-CoV-2 (PCR) (Not Detectd) 02/22/24 02/22/24 02/22/24 Range/Units 09:57 09:57 09:58 WBC (3.8-10.6) k/uL RBC (3.80-5.40) m/uL Hgb (11.4-16.0) gm/dL Hct (34.0-46.0) % MCV (80.0-100.0) fL MCH (25.0-35.0) pg MCHC (31.0-37.0) g/dL RDW (11.5-15.5) % Plt Count (150-450) k/uL MPV Neutrophils % % Lymphocytes % % Monocytes % % Eosinophils % % Basophils % % Neutrophils # (1.3-7.7) k/uL Lymphocytes # (1.0-4.8) k/uL Monocytes # (0-1.0) k/uL Eosinophils # (0-0.7) k/uL Basophils # (0-0.2) k/uL PT (10.0-12.5) sec INR (<1.2) APTT (22.0-30.0) sec Sodium (137-145) mmol/L Potassium (3.5-5.1) mmol/L Chloride (98-107) mmol/L Carbon Dioxide (22-30) mmol/L Anion Gap mmol/L BUN (7-17) mg/dL Creatinine (0.52-1.04) mg/dL Est GFR (CKD-EPI)AfAm (>60 ml/min/1.73 sqM) Est GFR (CKD-EPI)NonAf (>60 ml/min/1.73 sqM) Glucose (74-99) mg/dL Calcium (8.4-10.2) mg/dL Total Bilirubin (0.2-1.3) mg/dL AST (14-36) U/L ALT (4-34) U/L Alkaline Phosphatase (38-126) U/L Total Protein (6.3-8.2) g/dL Albumin (3.5-5.0) g/dL Lipase (23-300) U/L Urine Color Colorless Urine Appearance Clear (Clear) Urine pH 6.5 (5.0-8.0) Ur Specific [place] 1.001 (1.001-1.035) Urine Protein Negative (Negative) Urine Glucose (UA) Negative (Negative) Urine Ketones Negative (Negative) Urine Blood Negative (Negative) Urine Nitrite Negative (Negative) Urine Bilirubin Negative (Negative) Urine Urobilinogen <2.0 (<2.0) mg/dL Ur Leukocyte Esterase Negative (Negative) Urine HCG, Qual Not Detected (Not Detectd) Influenza Type A (PCR) Not Detected (Not Detectd) Influenza Type B (PCR) Not Detected (Not Detectd) RSV (PCR) Not Detected (Not Detectd) SARS-CoV-2 (PCR) Not Detected (Not Detectd) Disposition Clinical Impression: Abdominal pain Disposition: ADMITTED IP TO THIS [facility] Condition: Stable Is patient prescribed a controlled substance at d/c from ED?: No Referrals: Red Frey MD [Primary Care Provider] - 1-2 days Time of Disposition: 12:48
[2024-02-22] MEDS: SODIUM CHLORIDE 0.9% 1,000 ML IV STA (09:35)
[2024-02-22] MEDS: ONDANSETRON 4 MG/2 ML VIAL IVP STA (09:36)
[2024-02-22] MEDS: MORPHINE SULFATE 2 MG/ML SYRINGE IVP STA ×2 (09:38→10:34)
[2024-02-22 09:46] LABS: Basophils % (A) 0 %; Eosinophils # (A) 0.1 k/uL (0-0.7); Eosinophils % (A) 2 %; HCT 42.4 % (34.0-46.0); HGB 14.3 gm/dL (11.4-16.0); Lymphocytes # (A) 0.9 k/uL (1.0-4.8); Lymphocytes % (A) 25 %; MCH 30.6 pg (25.0-35.0); MCHC 33.7 g/dL (31.0-37.0); MCV 90.7 fL (80.0-100.0); Mean Platelet Volume 9.3; Monocytes # (A) 0.3 k/uL (0-1.0); Monocytes % (A) 7 %; Neutrophils # (A) 2.3 k/uL (1.3-7.7); Neutrophils % (A) 63 %; Platelet Count 159 k/uL (150-450); RBC 4.68 m/uL (3.80-5.40); RDW 12.8 % (11.5-15.5); WBC 3.7 k/uL (3.8-10.6)
[2024-02-22 09:54] LABS: INR 0.9 (<1.2); Partial Thromboplastin Time 23.9 sec (22.0-30.0); Prothrombin Time 10.2 sec (10.0-12.5)
[2024-02-22 09:58] LABS: ALT 13 U/L (4-34); AST 17 U/L (14-36); African American GFR (CKD) >90 (>60 ml/min/1.73 sqM); Albumin 4.5 g/dL (3.5-5.0); Alkaline Phosphatase 43 U/L (38-126); Anion Gap 16 mmol/L; Blood Urea Nitrogen 7 mg/dL (7-17); Calcium 7.7 mg/dL (8.4-10.2); Carbon Dioxide 24 mmol/L (22-30); Chloride 103 mmol/L (98-107); Glucose 93 mg/dL (74-99); Lipase 69 U/L (23-300); Non-African American GFR(CKD) >90 (>60 ml/min/1.73 sqM); Potassium 4.2 mmol/L (3.5-5.1); Sodium 143 mmol/L (137-145); Total Bilirubin 0.5 mg/dL (0.2-1.3)
[2024-02-22 10:03] LABS: Appearance,Urine Clear (Clear); Bilirubin,Urine Negative (Negative); Blood,Urine Negative (Negative); Color,Urine Colorless; Glucose,Urine (UA) Negative (Negative); Ketones,Urine Negative (Negative); Leukocyte Esterase,Urine Negative (Negative); Nitrite,Urine Negative (Negative); PH, Urine 6.5 (5.0-8.0); Protein,Urine Negative (Negative); Specific Gravity,Urine 1.001 (1.001-1.035); Urobilinogen,Urine <2.0 mg/dL (<2.0)
--- NOTE | 2024-02-22 11:04 | CT ---
EXAMINATION TYPE: CT abdomen pelvis w con CT DLP: 746 mGycm, Automated exposure control for dose reduction was used. DATE OF EXAM: 02/22/2024 10:55 AM COMPARISON: CT abdomen pelvis 02/20/2024, 05/13/2018, MR liver 10/23/2019 CLINICAL INDICATION:Female, 38 years old with history of RLQ pain; RLQ pain, back pain TECHNIQUE: Standard CT of the abdomen and pelvis following the administration of 100 cc of Isovue 3 00 IV contrast material. Coronal and sagittal reformats were performed. FINDINGS: LOWER CHEST: Unremarkable ABDOMEN LIVER: Stable enhancing lesion within the right hepatic lobe measuring up to 1.2 cm. GALLBLADDER AND BILE DUCTS: Layering increased densities within the lumen consistent with gallstones are present. PANCREAS: Unremarkable. SPLEEN: Unremarkable. ADRENAL GLANDS: Unremarkable. KIDNEYS AND URETERS: No evidence of hydronephrosis and no right renal calculi. Nonobstructive left re nal 3 mm calculi. Both kidneys enhance symmetrically. Contrast is demonstrated within both collecting systems on the delayed phase. PELVIS BLADDER: Unremarkable REPRODUCTIVE: Probable posterior uterine subserosal 1.4 cm fibroid which is stable. ABDOMEN & PELVIS STOMACH AND BOWEL: Stomach and duodenum are unremarkable. No focal bowel wall thickening or surroundi ng inflammatory changes. The appendix is not identified however no significant inflammatory changes w ithin the right lower quadrant. No evidence of bowel obstruction. PERITONEUM: No evidence of pneumoperitoneum. Trace amount of free fluid in the pelvis again which is likely physiologic. VASCULATURE: No evidence of aortic aneurysm. MUSCULOSKELETAL: No acute osseous abnormalities LYMPH NODES: No gross evidence for lymphadenopathy. SOFT TISSUE/ABDOMINAL WALL: Small fat filled umbilical hernia. IMPRESSION: 1. No definitive acute abdominal or pelvic processes. The appendix is not visualized however no sign ificant inflammatory changes within the right lower quadrant. 2. Stable right hepatic lobe enhancing 1.2 cm lesion compatible with prior MRI demonstrating a probab le hemangioma. 3. Nonobstructive left renal calculus. [facility], , 02/22/2024 11:02 AM
--- NOTE | 2024-02-22 12:22 | US ---
EXAMINATION TYPE: US transvaginal DATE OF EXAM: 02/22/2024 COMPARISON: Same day CT CLINICAL INDICATION: Female, 38 years old with history of RLQ ab pain; Pt states RLQ pain x 4 days TECHNIQUE: Transvaginal (TV). Transvaginal grayscale sonographic images of the pelvis were acquired. Doppler imaging: Color Doppler Images were obtained. Spectral doppler images were obtained. FINDINGS: Date of LMP: 01/27/2024 EXAM MEASUREMENTS: Uterus: 7.7 x 4.7 x 5.2 cm Endometrial Stripe: 0.7 cm Right Ovary: 2.7 x 1.9 x 1.3 cm Left Ovary: 2.8 x 1.7 x 2.1 cm 1. Uterus: Retroverted Probable pedunculated fibroid at fundus= 2.1 x 1.8 x 2.2 cm 2. Endometrium: wnl 3. Right Ovary: wnl 4. Left Ovary: wnl Spectral, color and waveform doppler imaging shows good arterial and venous flow within the ovaries ; there is no evidence for ovarian torsion. 5. Bilateral Adnexa: wnl 6. Posterior cul-de-sac: Small amount of free fluid Pedunculated fibroid at the uterine fundus measuring up to 2.2 cm. Retrograde uterus. Endometrium is within normal limits. Both ovaries appear unremarkable. Small amount of free fluid in the posterior c ul-de-sac which is likely physiologic. IMPRESSION: 1. No ultrasound evidence for acute process. 2. Pedunculated uterine fibroid. [facility], , 02/22/2024 12:20 PM
[2024-02-22] MEDS ORDERED: NALOXONE 0.4 MG/ML 1 ML VIAL IV PRN (12:44)
[2024-02-22] MEDS: SODIUM CHLORIDE 0.9% 1,000 ML IV SCH (12:49)
[2024-02-22] MEDS: MORPHINE SULFATE 4 MG/ML SYRINGE IV PRN (14:50)
[2024-02-22] MEDS: ONDANSETRON 4 MG/2 ML VIAL IVP PRN (20:59)
[2024-02-22] MEDS: ACETAMINOPHEN TAB 325 MG TAB PO PRN (21:00)
[2024-02-22] MEDS: HEPARIN SODIUM,PORCINE 5,000 UNIT/ML 1 ML VIAL SQ SCH (21:01)
[2024-02-23 09:18] LABS: Blood Urea Nitrogen 5.2 mg/dL (9.0-27.0); Calcium 8.4 mg/dL (8.7-10.3); Carbon Dioxide 23.6 mmol/L (21.6-31.8); Chloride 115 mmol/L (96-109); Glucose 104 mg/dL (70-110); Potassium 4.3 mmol/L (3.5-5.5); Sodium 142 mmol/L (135-145)
[2024-02-23 09:30] LABS: HGB 12.3 g/dL (12.0-15.0); MCH 30.8 pg (27.0-32.0); MCHC 34.2 g/dL (32.0-37.0); Mean Platelet Volume 12.1 FL (9.5-12.2); NRBC Per 100 WBC 0 X 10*3/uL (0.00-0.01); Platelet Count 155 X 10*3/uL (140-440); RDW 12.6 % (11.5-14.5); WBC 3.94 X 10*3/uL (4.50-10.00)
[2024-02-23 09:31] LABS: Basophils # (A) 0.01 X 10*3/uL (0.00-0.10); Basophils % (A) 0.3 %; Eosinophils # (A) 0.09 X 10*3/uL (0.04-0.35); Eosinophils % (A) 2.3 %; Lymphocytes % (A) 35.5 %; Monocytes # (A) 0.33 X 10*3/uL (0.20-1.00); Monocytes % (A) 8.4 %; Neutrophils % (A) 53.2 %
--- NOTE | 2024-02-23 09:42 | P.GSCN ---
History of Present Illness Consult date: 02/23/24 History of present illness: 38-year-old female presented to the emergency department with complaint of abdominal pain that has been present for 1 week. She states that it has been worsening over that time period. She states that the pain is in the right lower quadrant. It has not radiated. Complains of some nausea episodes. States that she regularly has bowel function daily but has not had a bowel movement for about [address] of the abdomen and pelvis performed without any significant acute process noted. Appendix was not visualized, however no inflammatory changes are noted in the right lower quadrant. Transvaginal ultrasound also performed without any acute findings. Patient denies any fevers, chills, chest pain or shortness of breath. Review of Systems All systems: negative Past Medical History Past Medical History: Thyroid Disorder Additional Past Medical History / Comment(s): hx. tachycardia, abd. pain on left side since beginning of August, occasional bloating, pain worse after eating History of Any Multi-Drug Resistant Organisms: None Reported Past Surgical History: Orthopedic Surgery Additional Past Surgical History / Comment(s): adonis bunionectomy, wisdom teeth removed Past Anesthesia/Blood Transfusion Reactions: No Reported Reaction Past Psychological History: No Psychological Hx Reported Smoking Status: Former smoker Past Alcohol Use History: Occasional Additional Past Alcohol Use History / Comment(s): quit smoking 2012, smoked for 6 yrs. 1ppd Past Drug Use History: None Reported Medications and Allergies Home Medications Medication Instructions Recorded Confirmed Type Azithromycin [Zithromax Z Pack] See Taper PO DIRECTED 02/22/24 02/22/24 H istory norgestimate-ethinyl estradioL 1 tab PO HS 02/22/24 02/22/24 History [Sprintec 28 Day Tablet] Allergies Allergy/AdvReac Type Severity Reaction Status Date / Time No Known Allergies Allergy Verified 02/22/24 11:17 Surgical - Exam Osteopathic Statement: *. No significant issues noted on an osteopathic struct ural exam other than those noted in the History and Physical/Consult. Vital Signs Temp Pulse Resp BP Pulse Ox 97.3 F L 65 20 126/83 96 02/22/24 08:55 02/22/24 08:55 02/22/24 08:55 02/22/24 08:55 02/22/24 08:55 - General well developed, well nourished, no distress - Eyes normal ocular movement - ENT no hearing loss - Neck trachea midline - Respiratory normal respiratory effort - Abdomen Soft, mild tenderness to palpation in the right lower quadrant, no tenderness to percussion, nondistended - Psychiatric oriented to time, oriented to person, oriented to place Results - Labs 02/23/24 03:58 02/23/24 03:58 Abnormal Lab Results - Last 24 Hours (Table) 02/22/24 02/22/24 02/23/24 Range/Units 09:38 09:38 03:58 WBC 3.7 L 3.94 L (3.8-10.6) k/uL RBC 4.00 L (4.10-5.20) X 10*6/uL Hct 36.0 L (37.2-46.3) % Lymphocytes # 0.9 L (1.0-4.8) k/uL Chloride (96-109) mmol/L Anion Gap (4.00-12.00) mmol/L BUN (9.0-27.0) mg/dL BUN/Creatinine Ratio (12.00-20.00) Ratio Calcium 7.7 L (8.4-10.2) mg/dL TSH (0.350-5.500) UIU/ML 02/23/24 Range/Units 03:58 WBC (3.8-10.6) k/uL RBC (4.10-5.20) X 10*6/uL Hct (37.2-46.3) % Lymphocytes # (1.0-4.8) k/uL Chloride 115 H (96-109) mmol/L Anion Gap 3.40 L (4.00-12.00) mmol/L BUN 5.2 L (9.0-27.0) mg/dL BUN/Creatinine Ratio 6.50 L (12.00-20.00) Ratio Calcium 8.4 L (8.4-10.2) mg/dL TSH 8.640 H (0.350-5.500) UIU/ML Diabetes panel 02/22/24 02/23/24 Range/Units 09:38 03:58 Sodium 143 142 (137-145) mmol/L Potassium 4.2 4.3 (3.5-5.1) mmol/L Chloride 103 115 H (98-107) mmol/L Carbon Dioxide 24 23.6 (22-30) mmol/L BUN 7 5.2 L (7-17) mg/dL Creatinine 0.80 0.8 (0.52-1.04) mg/dL Glucose 93 104 (74-99) mg/dL Calcium 7.7 L 8.4 L (8.4-10.2) mg/dL AST 17 (14-36) U/L ALT 13 (4-34) U/L Alkaline Phosphatase 43 (38-126) U/L Total Protein 7.0 (6.3-8.2) g/dL Albumin 4.5 (3.5-5.0) g/dL Thyroid panel 02/23/24 Range/Units 03:58 TSH 8.640 H (0.350-5.500) UIU/ML Calcium panel 02/22/24 02/23/24 Range/Units 09:38 03:58 Calcium 7.7 L 8.4 L (8.4-10.2) mg/dL Albumin 4.5 (3.5-5.0) g/dL Pituitary panel 02/22/24 02/23/24 Range/Units 09:38 03:58 Sodium 143 142 (137-145) mmol/L Potassium 4.2 4.3 (3.5-5.1) mmol/L Chloride 103 115 H (98-107) mmol/L Carbon Dioxide 24 23.6 (22-30) mmol/L BUN 7 5.2 L (7-17) mg/dL Creatinine 0.80 0.8 (0.52-1.04) mg/dL Glucose 93 104 (74-99) mg/dL Calcium 7.7 L 8.4 L (8.4-10.2) mg/dL TSH 8.640 H (0.350-5.500) UIU/ML Adrenal panel 02/22/24 02/23/24 Range/Units 09:38 03:58 Sodium 143 142 (137-145) mmol/L Potassium 4.2 4.3 (3.5-5.1) mmol/L Chloride 103 115 H (98-107) mmol/L Carbon Dioxide 24 23.6 (22-30) mmol/L BUN 7 5.2 L (7-17) mg/dL Creatinine 0.80 0.8 (0.52-1.04) mg/dL Glucose 93 104 (74-99) mg/dL Calcium 7.7 L 8.4 L (8.4-10.2) mg/dL Total Bilirubin 0.5 (0.2-1.3) mg/dL AST 17 (14-36) U/L ALT 13 (4-34) U/L Alkaline Phosphatase 43 (38-126) U/L Total Protein 7.0 (6.3-8.2) g/dL Albumin 4.5 (3.5-5.0) g/dL Assessment and Plan Plan: 38-year-old female with right lower quadrant abdominal pain. Today, patient states pain is 6 out of 10 compared to her emergency department visit in which she was a 10 out of 10. On personal review of the CT of the abdomen and pelvis, there are no inflammatory changes in the right lower quadrant, however the right colon and cecum do have stool burden. We will begin the patient on a bowel regimen as she has not had bowel function in 3 days. No plan for acute surgical intervention.
[2024-02-23] MEDS: polyethylene glycoL 3350 17 GM POWD.PACK PO SCH (10:59)
--- NOTE | 2024-02-23 11:34 | P.HPIM ---
History of Present Illness H&P Date: 02/22/24 Chief Complaint: Abdominal pain Patient is a 38-year-old female with a past medical history of hypothyroidism currently not taking any supplement for the past 1 year presents to ER with complaints of abdominal pain mainly right-sided started on Wednesday night. Patient presents to ER and had CT of the abdomen pelvis which was essentially negative. Patient came back to the hospital with complaints of nausea vomiting started this morning along with abdominal pain. Pain has been on and off since last Wednesday. Pain is radiating to the back across the right side of the abdo men. Denied any nausea vomiting or diarrhea. Patient has been having constipation for the past few days. Denied any fever or chills. Denied any recent illnesses. WBC 3.7 hemoglobin 14.3 and platelets 159 sodium 143 potassium 4.2 chloride 103 bicarb is 24 BUN 7 and creatinine 0.8 and blood sugar is 93 and calcium 7.7 Urinalysis negative for infection Influenza A B RSV and COVID-[address] of the abdomen pelvis showed no definitive acute abnormal or pelvic process. Appendix is not visualized however no significant traumatic changes within the right lower quadrant. Stable right hepatic lobe enhancing 1.2 cm lesion compatible with prior MRI demonstrating a probable hemangioma. Nonobstructive left renal calculus. Transvaginal ultrasound showed no ultrasound evidence of acute process. Pedunculated uterine fibroid. Review of Systems Constitutional: Patient denies any fever or chills . No generalized weakness or weight loss. Abdomen: Patient complains of nausea vomiting and abdominal pain no diarrhea. Constipation. Cardiovascular: Patient denies any chest pain or short of breath no palpitations. Respiratory: patient denied any cough or sputum production. No shortness of breath Neurologic: Patient denied any numbness or tingling. no headache. Musculoskeletal: Patient denies any complaints of joint swelling or deformity. Skin: Negative Psychiatric: Negative Endocrine: No heat or cold intolerance. No recent weight gain. Genitourinary: No dysuria or hematuria. All other 14 point ROS negative except the above Past Medical History Past Medical History: Thyroid Disorder Additional Past Medical History / Comment(s): hx. tachycardia, abd. pain on left side since beginning of August, occasional bloating, pain worse after eating History of Any Multi-Drug Resistant Organisms: None Reported Past Surgical History: Orthopedic Surgery Additional Past Surgical History / Comment(s): adonis bunionectomy, wisdom teeth removed Past Anesthesia/Blood Transfusion Reactions: No Reported Reaction Past Psychological History: No Psychological Hx Reported Smoking Status: Former smoker Past Alcohol Use History: Occasional Additional Past Alcohol Use History / Comment(s): quit smoking 2012, smoked for 6 yrs. 1ppd Past Drug Use History: None Reported Medications and Allergies Home Medications Medication Instructions Recorded Confirmed Type Azithromycin [Zithromax Z Pack] See Taper PO DIRECTED 02/22/24 02/22/24 History norgestimate-ethinyl estradioL 1 tab PO HS 02/22/24 02/22/24 History [Sprintec 28 Day Tablet] Allergies Allergy/AdvReac Type Severity Reaction Status Date / Time No Known Allergies Allergy Verified 02/22/24 11:17 Physical Exam Vitals: Vital Signs Temp Pulse Pulse Resp BP BP Pulse Ox 02/22/24 19:27 97.5 F L 70 17 129/85 100 02/22/24 14:49 97.9 F 71 14 115/81 100 02/22/24 14:19 98 F 72 18 121/83 98 02/22/24 10:33 70 18 123/81 100 02/22/24 08:55 97.3 F L 65 20 126/83 96 Intake and Output 02/22/24 02/22/24 02/22/24 06:59 14:59 22:59 Intake Total 118 Balance 118 Intake: Oral 118 Other: Weight 75.296 kg PHYSICAL EXAMINATION: Patient is lying in the bed comfortably, no acute distress, awake alert and oriented.. HEENT: Normocephalic. Neck is supple. Pupils reactive. Nostrils clear. Oral cavity is moist. Neck reveals no JVD, carotid bruits, or thyromegaly. CHEST EXAMINATION: Trachea is central. Symmetrical expansion. Lung dutta clear to auscultation and percussion. CARDIAC: Normal S1, S2 with no gallops. No murmurs ABDOMEN: Soft. Mild tenderness right lower quadrant and mid abdomen. No guarding or rigidity. Bowel sounds normal. No organomegaly. No abdominal bruits. Extremities: reveal no edema. No clubbing or cyanosis Neurologically awake, alert, oriented x3 with well-coordinated movements. No focal deficits noted Skin: No rash or skin lesions. Psychiatric: Coperative. Nonsuicidal Musculoskeletal: No joint swelling or deformity. Normal range of motion. Results CBC & Chem 7: 11/27/24 03:58 02/23/24 03:58 Labs: Abnormal Lab Results - Last 24 Hours (Table) 02/22/24 02/22/24 Range/Units 09:38 09:38 WBC 3.7 L (3.8-10.6) k/uL Lymphocytes # 0.9 L (1.0-4.8) k/uL Calcium 7.7 L (8.4-10.2) mg/dL Thrombosis Risk Factor Assmnt - DVT/VTE Prophylaxis DVT/VTE Prophylaxis: Pharmacologic Prophylaxis ordered - Choose All That Apply Any of the Below Risk Factors Present?: No Other Risk Factors: No Thrombosis Risk Factor Assessment Level: Very Low Risk Assessment and Plan Assessment: Abdominal pain mainly in the right lower quadrant and radiating across to the back. CT abdomen pelvis showed no acute process. Constipation Hypothyroidism currently not taking any medications Prior history of smoking Abdominal pain and occasional bloating GI and DVT prophylaxis Plan: Patient will be continued on IV hydration with normal saline. Continue with symptomatic management for nausea and vomiting. Continue with pain management. General surgery was consulted for evaluation. Follow-up TSH and free T4 levels. Continue with supportive care and follow-up closely.
[2024-02-23 19:36] VITALS: TEMP 97.9
[2024-02-23] MEDS: SENNOSIDES 8.6 MG TAB PO PRN (20:34)
--- NOTE | 2024-02-24 06:36 | P.PN ---
Progress Note - Text Progress Note Date: 02/24/24 No acute events overnight. Still having some RLQ pain. She has not had a bowel movement yet. Denies nausea and vomiting. Tolerating CLD. VSS General-NAD Abdomen-soft, ND, TTP RLQ 38 year old female with RLQ pain, Constipation -Advanced to Full Liquid Diet -Continue Bowel Regimen -Encourage Ambulation -No acute surgical intervention Minesh Werner DO [facility] [phone]
[2024-02-24 07:02] VITALS: PULSE 74; RESP 16
[2024-02-24 07:51] VITALS: BP 117/77
--- NOTE | 2024-02-27 21:57 | P.DS ---
Providers Date of admission: 02/22/24 12:44 Expected date of discharge: 02/24/24 Attending physician: Dick Nguyen Consults: 02/22/24 12:44 Consult Physician Routine Consulting Provider: Chelsey Barrios Consult Reason/Comments: Intractable right lower quadrant abdominal pain Do you want consulting provider notified?: Yes Primary care physician: eRd Frey Hospital Course: Discharge diagnosis Abdominal pain mainly in the right lower quadrant and radiating across to the back. Likely due to constipation. Improved now. CT abdomen pelvis showed no acute process. Constipation Hypothyroidism currently not taking any medications Prior history of smoking Abdominal pain and occasional bloating GI and DVT prophylaxis Hospital course Patient is a 38-year-old female with a past medical history of hypothyroidism currently not taking any supplement for the past 1 year presents to ER with complaints of abdominal pain mainly right-sided started on Wednesday night. Aura myles presents to ER and had CT of the abdomen pelvis which was essentially negative. Patient came back to the hospital with complaints of nausea vomiting started this morning along with abdominal pain. Pain has been on and off since last Wednesday. Pain is radiating to the back across the right side of the abdomen. Denied any nausea vomiting or diarrhea. Patient has been having constipation for the past few days. Denied any fever or chills. Denied any recent illnesses. WBC 3.7 hemoglobin 14.3 and platelets 159 sodium 143 potassium 4.2 chloride 103 bicarb is 24 BUN 7 and creatinine 0.8 and blood sugar is 93 and calcium 7.7 Urinalysis negative for infection Influenza A B RSV and COVID-[address] of the abdomen pelvis showed no definitive acute abnormal or pelvic process. Appendix is not visualized however no significant traumatic changes within the right lower quadrant. Stable right hepatic lobe enhancing 1.2 cm lesion compatible with prior MRI demonstrating a probable hemangioma. Nonobstructive left renal calculus. Transvaginal ultrasound showed no ultrasound evidence of acute process. Pedunculated uterine fibroid. 02/23/2024 Patient is lying in the bed. Awake alert and oriented x 3. Still complains of right-sided abdominal pain. Able to pass flatus. No bowel meant today. No complaints of chest pain or shortness of breath. Lab data showed WBC 3.9 hemoglobin 12.3 and platelets 155 sodium 142 potassium 4.3 chloride 115 bicarb is 23.6 BUN 5.1 creatinine 0.8 and blood sugar 104 and TSH level is 8.64. Free T4 level within normal limits at 0.99 Patient is being continued on stool softeners and laxatives and IV hydration. General surgery is on board. 02/24/2024 Patient is awake alert and oriented x 3. No complaints of chest pain. Abdominal pain is much improved. Patient did have a bowel movement. no complaints of hematochezia. No nausea vomiting or diarrhea. Patient is able to tolerate oral diet. He would like to be discharged home today. PHYSICAL EXAMINATION: Patient is lying in the bed comfortably, no acute distress, awake alert and oriented.. HEENT: Normocephalic. Neck is supple. Pupils reactive. Nostrils clear. Oral cavity is moist. Neck reveals no JVD, carotid bruits, or thyromegaly. CHEST EXAMINATION: Trachea is central. Symmetrical expansion. Lung dutta clear to auscultation and percussion. CARDIAC: Normal S1, S2 with no gallops. No murmurs ABDOMEN: Soft. Bowel sounds normal. No organomegaly. No abdominal bruits. Extremities: reveal no edema. No clubbing or cyanosis Neurologically awake, alert, oriented x3 with well-coordinated movements. No focal deficits noted Skin: No rash or skin lesions. Psychiatric: Coperative. Nonsuicidal Musculoskeletal: No joint swelling or deformity. Normal range of motion. Discharge vitals reviewed. Patient Condition at Discharge: Stable Plan - Discharge Summary Discharge Rx Participant: No New Discharge Prescriptions: New Sennosides [Senokot] 8.6 mg PO DAILY PRN #30 tab PRN Reason: Constipation Continue norgestimate-ethinyl estradioL [Sprintec 28 Day Tablet] 1 tab PO HS Discontinued Azithromycin [Zithromax Z Pack] See Taper PO DIRECTED Discharge Medication List norgestimate-ethinyl estradioL [Sprintec 28 Day Tablet] 1 tab PO HS 02/22/24 [History] Sennosides [Senokot] 8.6 mg PO DAILY PRN #30 tab 02/24/24 [Rx] Follow up Appointment(s)/Referral(s): Red Frey MD [Primary Care Provider] - 1-2 days Patient Instructions/Handouts: Constipation (DC) Discharge Disposition: HOME SELF-CARE
== END 2024-02-24 13:43 | disposition home or self-care (01) ==
LOC: EC 08:45 → 6NMEDSUR 12:44
PROVIDERS: ADMIT Internal Medicine; ATTEND Internal Medicine
DX: R10.31 Right lower quadrant pain (principal); M54.9 Dorsalgia, unspecified; K59.00 Constipation, unspecified; K76.9 Liver disease, unspecified; D25.9 Leiomyoma of uterus, unspecified; N20.0 Calculus of kidney; E03.9 Hypothyroidism, unspecified; D72.819 Decreased white blood cell count, unspecified; Z79.3 Long term (current) use of hormonal contraceptives; Z11.52 Encounter for screening for COVID-19; Z11.59 Encounter for screening for other viral diseases; R11.2 Nausea with vomiting, unspecified; Z87.891 Personal history of nicotine dependence
CPT/HCPCS: 96376 ×4; 96361 ×3; 96372 ×2; 96374; 96375; 99285; 36415; 84439; 80053; 80048; 84443; 83690; 85025 ×2; 85610; 85730; 81003; 81025; 87636; 93975; 76830; 74177; G0378 ×3; J2270 ×3; J1644 ×2; J2405 ×2; Q9967